=== PATIENT | female | born 1990 | race Caucasian/White ===

== ENCOUNTER 2024-03-03 04:46 | Observation (INO) | payer BC ==
[2024-03-03] MEDS ORDERED: Ondansetron PF 4 MG/2 ML Vial ONE ×2 (05:56→12:40)
[2024-03-03] MEDS ORDERED: Morphine 4 MG/ML VIAL ONE (05:56)
[2024-03-03] MEDS ORDERED: Morphine 4 MG/ML VIAL SLOW IVP PRN (06:34)
[2024-03-03] MEDS ORDERED: Ondansetron PF 4 MG/2 ML Vial IVP PRN (06:45)
[2024-03-03] MEDS ORDERED: Ondansetron ODT 4 MG TAB SL PRN (06:45)
[2024-03-03] MEDS: Sodium Chloride 0.9% 1,000 ML IV SCH (07:52)
[2024-03-03] MEDS ORDERED: Ketorolac Tromethamine 30 MG (1 mL) VIAL IVP PRN (07:53)
[2024-03-03] MEDS ORDERED: Midazolam HCl 2 mg/2 ml Vial ONE (12:40)
[2024-03-03] MEDS ORDERED: Dexamethasone 4 mg/ml Vial ONE (12:40)
[2024-03-03] MEDS ORDERED: PROPOFOL 20 ML ONE (12:40)
[2024-03-03] MEDS ORDERED: fentaNYL PF 100 MCG/2 ML SYRINGE ONE (12:40)
[2024-03-03] MEDS ORDERED: Lidocaine 2% PF 5 ML VIAL ONE (12:40)
[2024-03-03] MEDS ORDERED: Rocuronium Bromide 10 MG/ML (10ML VIAL) ONE (12:40)
[2024-03-03] MEDS ORDERED: Lidocaine 2% 6 ML (Jelly) SYR ONE (12:43)
[2024-03-03] MEDS ORDERED: ePHEDrine Sulfate 50 MG/10 ML VIAL ONE (13:53)
[2024-03-03] MEDS ORDERED: SUGAMMADEX SODIUM 200 MG/2 ML VIAL ONE (13:55)
[2024-03-03] MEDS ORDERED: Phenazopyridine HCl 100 MG TAB ONE (15:05)
[2024-03-03] MEDS ORDERED: Oxybutynin 5 MG TAB ONE (15:05)
[2024-03-03] MEDS ORDERED: Oxybutynin 5 MG TAB PO PRN (15:16)
[2024-03-03] MEDS ORDERED: HYDROcodone/Acetaminophen 5/325 mg Tablet ONE (16:35)
[2024-03-03] MEDS ORDERED: Phenazopyridine HCl 100 MG TAB PO SCH (21:00)
[2024-03-03] MEDS ORDERED: Docusate 100 MG CAP PO SCH (21:00)
[2024-03-04] MEDS ORDERED: cefTRIAXone\\ROCEPHIN 2 GM in Sodium Chloride 0.9% 100 ML IVPB SCH (02:00)
[2024-03-04] MEDS ORDERED: Polyethylene Glycol 3350 17 GM Packet PO SCH (09:00)
== END 2024-03-03 17:45 | disposition home or self-care (01) ==
LOC: ERS 04:46 → ERHOLD 06:25 → SURG A 09:04
PROVIDERS: ADMIT Internal Medicine; ATTEND Internal Medicine
PROC: BT1DZZZ Fluoroscopy of Right Kidney, Ureter and Bladder (ICD-10-PCS; principal; 2024-03-03)
PROC: 0T768DZ Dilation of Right Ureter with Intraluminal Device, Via Natural or Artificial Opening Endoscopic (ICD-10-PCS; 2024-03-03)
DX: N20.1 Calculus of ureter (principal); N13.30 Unspecified hydronephrosis; N39.0 Urinary tract infection, site not specified; J45.909 Unspecified asthma, uncomplicated; F90.9 Attention-deficit hyperactivity disorder, unspecified type; Z87.59 Personal history of other complications of pregnancy, childbirth and the puerperium; Z79.1 Long term (current) use of non-steroidal anti-inflammatories (NSAID); Z79.899 Other long term (current) drug therapy
CPT/HCPCS: 74176; 74420; 80053; 81001; 84703; 85025; 96361; 96365; 96374; 96375; 96376; C1747; C1769; C2617; G0378; J0696; J1100; J1171; J1885; J2250; J2272; J2405; J2704; J7030